=== PATIENT | male | born 1945 | race Caucasian/White ===

== ENCOUNTER 2017-03-30 21:08 | Inpatient (IN) | payer OTHER, MEDICARE, BC ==
[~2017-03-30] VITALS: Ht 188 cm; Wt 125.0 kg
[~2017-03-30 21:08] MED LIST: temazepam 15mg capsule PO PRN
[2017-03-30] MEDS ORDERED: pantoprazole 40MG/NS 100ML BAG 100 ML IV ONE (21:50)
[2017-03-30] MEDS ORDERED: pantoprazole 40 MG vial IV ONE (21:50)
[2017-03-30] MEDS ORDERED: tranexamic acid inj. 1,000 MG in normal saline 100ml IV soln 90 ML IV STA (21:51)
[2017-03-30 21:54] LABS: BASOPHILS % (AUTO) 0.4 % (0-1); EOSINOPHILS # (AUTO) 0.2 X10'3 (0-0.9); EOSINOPHILS % (AUTO) 2.3 % (0-6); HEMATOCRIT 30.8 % (42.0-52.0); HEMOGLOBIN 10.5 g/dl (14.0-17.9); LYMPHOCYTES # (AUTO) 1.9 X10'3 (1.1-4.8); LYMPHOCYTES % (AUTO) 18.4 % (21-51); MEAN CORPUSCULAR HEMOGLOBIN 31.2 PG (27.0-31.0); MEAN PLATELET VOLUME 7.4 FL (7.4-10.4); MONOCYTES # (AUTO) 0.5 X10'3 (0-0.9); MONOCYTES % (AUTO) 4.5 % (2-12); NEUTROPHILS # (AUTO) 7.7 X10'3 (1.8-7.7); NEUTROPHILS % (AUTO) 74.4 % (42-75); PLATELET COUNT 253 X10'3 (140-440); RED BLOOD COUNT 3.35 X10'6 (4.70-6.10); WHITE BLOOD COUNT 10.4 X10'3 (4.5-11.0)
[2017-03-30 22:04] LABS: INR 1.1 INR; PARTIAL THROMBOPLASTIN TIME 31 SECONDS (22-32)
[2017-03-30 22:11] LABS: ALANINE AMINOTRANSFERASE 20 U/L (12-78); ALBUMIN 3.3 G/DL (3.4-5.0); ALBUMIN/GLOBULIN RATIO 0.9 (1.1-1.5); ALKALINE PHOSPHATASE 75 IU/L (46-116); ANION GAP 11 (8-16); ASPARTATE AMINO TRANSFERASE 11 U/L (10-37); BILIRUBIN,TOTAL 0.5 MG/DL (0.1-1.0); BLOOD UREA NITROGEN 20 MG/DL (7-18); BUN/CREATININE RATIO 11.6 (5.4-32.0); CALCIUM 8.9 MG/DL (8.5-10.1); CHLORIDE 104 MMOL/L (99-107); CREATININE 1.73 MG/DL (0.60-1.10); GLUCOSE 297 MG/DL (70-104); POTASSIUM 4.4 MMOL/L (3.5-5.1); SODIUM 139 MMOL/L (135-145); TOTAL CARBON DIOXIDE 24.3 MMOL/L (24-32); TOTAL PROTEIN 6.8 G/DL (6.4-8.2); eGFR 39 ML/MIN
[2017-03-30] MEDS ORDERED: normal saline 1000ML IV soln IVB ONE (22:15)
[2017-03-30] MEDS ORDERED: [UNRECOGNIZED DRUG - OTHER] IV ONE (23:01)
[2017-03-30] MEDS ORDERED: PANTOPRAZOLE IV ONE (23:01)
[2017-03-30] MEDS ORDERED: tranexamic acid 100mg/ml inj. ONE (23:02)
[2017-03-30] MEDS ORDERED: mag hydrox/Alum hydrox/simeth 30ml oral suspension PO PRN (23:20)
[2017-03-30] MEDS ORDERED: HYDROcodone/acetaminophen 5mg/325mg tablet PO PRN (23:20)
[2017-03-30] MEDS ORDERED: magnesium hydroxide 30ml (MOM) UD suspension PO PRN (23:20)
[2017-03-30] MEDS ORDERED: HYDROmorphone 1 mg/ml syringe IV PRN ×2 (23:20)
[2017-03-30] MEDS ORDERED: acetaminophen 650mg rectal suppository RC PRN (23:20)
[2017-03-30] MEDS ORDERED: diphenhydrAMINE 50 mg/ml inj IV PRN (23:20)
[2017-03-30] MEDS ORDERED: ondansetron/PF 4mg/2ml inj IV PRN (23:20)
[2017-03-30] MEDS ORDERED: diphenhydrAMINE 25mg capsule PO PRN (23:20)
[2017-03-30] MEDS ORDERED: acetaminophen 325mg tablet PO PRN ×2 (23:20)
[2017-03-30] MEDS ORDERED: HYDROcodone/acetaminophen 10/325mg tab PO PRN (23:20)
[2017-03-30] MEDS ORDERED: bisacodyl 10mg suppository rectal RC PRN (23:20)
[2017-03-30] MEDS ORDERED: metoclopramide 5 mg/ml inj IV PRN (23:20)
[2017-03-30] MEDS ORDERED: TRAM50TA2 PO (23:37)
[2017-03-30] MEDS ORDERED: PIOG30TA27 PO (23:37)
[2017-03-30] MEDS ORDERED: MULT-269 PO (23:49)
[2017-03-30] MEDS ORDERED: ASPI-1265 PO (23:49)
[2017-03-30] MEDS ORDERED: CARV-50 PO (23:49)
[2017-03-30] MEDS ORDERED: METF500T4 PO (23:49)
[2017-03-30] MEDS ORDERED: HYDR-3964 PO (23:49)
[2017-03-30] MEDS ORDERED: LOSA100T28 PO (23:49)
[2017-03-30] MEDS ORDERED: GLIM4TAB79 PO (23:49)
[2017-03-30] MEDS ORDERED: CHOL400T14 PO (23:49)
[2017-03-30] MEDS ORDERED: HYDR12.55 PO (23:49)
[2017-03-30] MEDS ORDERED: ATOR10TA70 PO (23:49)
[2017-03-30 23:53] LABS: LIPASE 90 U/L (73-393); MAGNESIUM 1.3 MG/DL (1.5-2.4)
[2017-03-31] VITALS (14 sets, daily range): BP systolic 95–153; BP diastolic 42–68
[2017-03-31] MEDS: normal saline 1000ml 1,000 ML IV SCH ×3 (00:51→19:19)
[2017-03-31] MEDS ORDERED: MESSAGE TO PHARMACY PO ONE (01:45)
[2017-03-31] MEDS ORDERED: glucagon, human recombinant 1mg kit SUBCUT PRN (01:45)
[2017-03-31] MEDS ORDERED: dextrose 50%-water 50ml dispensing syringe IV PRN ×2 (01:45)
[2017-03-31] MEDS ORDERED: dextrose ORAL solution 15 GM/59 ML bottle PO PRN ×2 (01:45)
[2017-03-31] MEDS ORDERED: potassium Cl 40MEQ/NS 500ml 500 ML IV PRN ×2 (01:50)
[2017-03-31] MEDS ORDERED: magnesium 2GM in 50ml NS 50 ML IV PRN (01:50)
[2017-03-31] MEDS ORDERED: magnesium 4gm in 100ml NS 100 ML IV PRN (01:50)
[2017-03-31] MEDS ORDERED: potassium Cl 20 mEq SR tablet PO PRN ×2 (01:50)
[2017-03-31 04:11] LABS: BASOPHILS % (AUTO) 0.5 % (0-1); EOSINOPHILS # (AUTO) 0.2 X10'3 (0-0.9); HEMATOCRIT 23.6 % (42.0-52.0); HEMOGLOBIN 8.1 g/dl (14.0-17.9); LYMPHOCYTES # (AUTO) 2.3 X10'3 (1.1-4.8); MEAN CORPUSCULAR HEMOGLOBIN 31.7 PG (27.0-31.0); MEAN CORPUSCULAR HGB CONC 34.3 % (33.0-36.5); MEAN CORPUSCULAR VOLUME 92.5 FL (78-98); MEAN PLATELET VOLUME 7.5 FL (7.4-10.4); MONOCYTES # (AUTO) 0.6 X10'3 (0-0.9); MONOCYTES % (AUTO) 6.2 % (2-12); NEUTROPHILS # (AUTO) 6.2 X10'3 (1.8-7.7); NEUTROPHILS % (AUTO) 66.3 % (42-75); PLATELET COUNT 206 X10'3 (140-440); RED BLOOD COUNT 2.55 X10'6 (4.70-6.10); RED CELL DISTRIBUTION WIDTH 14.1 % (11.5-14.5); WHITE BLOOD COUNT 9.4 X10'3 (4.5-11.0)
[2017-03-31 04:27] LABS: ALANINE AMINOTRANSFERASE 18 U/L (12-78); ALBUMIN 2.8 G/DL (3.4-5.0); ALKALINE PHOSPHATASE 57 IU/L (46-116); ANION GAP 6 (8-16); ASPARTATE AMINO TRANSFERASE 9 U/L (10-37); BILIRUBIN,TOTAL 0.4 MG/DL (0.1-1.0); BLOOD UREA NITROGEN 23 MG/DL (7-18); BUN/CREATININE RATIO 15.1 (5.4-32.0); CALCIUM 8.5 MG/DL (8.5-10.1); CHLORIDE 110 MMOL/L (99-107); CREATININE 1.52 MG/DL (0.60-1.10); GLUCOSE 197 MG/DL (70-104); POTASSIUM 4.7 MMOL/L (3.5-5.1); SODIUM 141 MMOL/L (135-145); TOTAL PROTEIN 5.7 G/DL (6.4-8.2); eGFR 45 ML/MIN
[2017-03-31] MEDS: pantoprazole 40MG/NS 100ML BAG 100 ML IV SCH ×4 (04:36→23:15)
[2017-03-31] MEDS: magnesium Cl slow-release 64mg tablet PO PRN (04:50)
[2017-03-31] MEDS: nicotine 21mg patch - 24 hr TD SCH (08:00)
[2017-03-31] MEDS: docusate sod 100mg capsule PO SCH ×2 (08:41→20:00)
[2017-03-31] MEDS ORDERED: traMADol 50MG tablet PO PRN (10:30)
[2017-03-31] MEDS ORDERED: HYDROchlorothiazide 12.5mg capsule PO SCH (10:30)
[2017-03-31] MEDS: HYDROchlorothiazide 12.5mg capsule PO SCH ×2 (11:00→11:13)
[2017-03-31] MEDS: carVEDilol 12.5mg tablet PO SCH ×2 (11:13→21:19)
[2017-03-31] MEDS ORDERED: MIDAZolam 1mg/ml 10ml vial ONE (15:07)
[2017-03-31] MEDS ORDERED: fentaNYL/PF 50MCG/1 ML 2ML syringe ONE (15:07)
[2017-03-31] MEDS ORDERED: LIDOcaine Viscous 15ml cup ONE (15:07)
[2017-03-31] MEDS ORDERED: PEG 3350/Na sulf,bicarb,Cl/KCl oral sol 4 liter bottle PO ONE (17:05)
[2017-03-31] MEDS: insulin Lispro (HumaLOG) vial - multi-dose SQ SCH (18:45)
[2017-03-31 19:43] LABS: HEMOGLOBIN 7.3 g/dl (14.0-17.9); MEAN CORPUSCULAR HEMOGLOBIN 31.6 PG (27.0-31.0); MEAN CORPUSCULAR HGB CONC 34.3 % (33.0-36.5); MEAN CORPUSCULAR VOLUME 92.2 FL (78-98); MEAN PLATELET VOLUME 7.4 FL (7.4-10.4); PLATELET COUNT 197 X10'3 (140-440); RED CELL DISTRIBUTION WIDTH 14.3 % (11.5-14.5); WHITE BLOOD COUNT 7.7 X10'3 (4.5-11.0)
[2017-03-31 19:57] LABS: HEMATOCRIT 21.2 % (42.0-52.0)
[2017-03-31] MEDS: atorvastatin 10mg tablet PO SCH (21:19)
[2017-03-31] MEDS: Insulin Detemir pen SQ SCH (21:27)
[2017-04-01] VITALS (11 sets, daily range): BP systolic 99–158; BP diastolic 55–71
[2017-04-01] MEDS: pantoprazole 40MG/NS 100ML BAG 100 ML IV SCH ×4 (04:53→20:50)
[2017-04-01] MEDS: normal saline 1000ml 1,000 ML IV SCH ×2 (04:53→12:40)
[2017-04-01 06:09] LABS: BASOPHILS % (AUTO) 0.4 % (0-1); EOSINOPHILS # (AUTO) 0.3 X10'3 (0-0.9); EOSINOPHILS % (AUTO) 3.8 % (0-6); HEMATOCRIT 22.1 % (42.0-52.0); HEMOGLOBIN 7.7 g/dl (14.0-17.9); LYMPHOCYTES # (AUTO) 2.3 X10'3 (1.1-4.8); LYMPHOCYTES % (AUTO) 31.3 % (21-51); MEAN CORPUSCULAR HEMOGLOBIN 31.4 PG (27.0-31.0); MEAN CORPUSCULAR HGB CONC 34.7 % (33.0-36.5); MEAN CORPUSCULAR VOLUME 90.6 FL (78-98); MEAN PLATELET VOLUME 7.8 FL (7.4-10.4); MONOCYTES # (AUTO) 0.5 X10'3 (0-0.9); MONOCYTES % (AUTO) 6.6 % (2-12); NEUTROPHILS # (AUTO) 4.2 X10'3 (1.8-7.7); NEUTROPHILS % (AUTO) 57.9 % (42-75); PLATELET COUNT 172 X10'3 (140-440); RED BLOOD COUNT 2.44 X10'6 (4.70-6.10); RED CELL DISTRIBUTION WIDTH 14.3 % (11.5-14.5); WHITE BLOOD COUNT 7.3 X10'3 (4.5-11.0)
[2017-04-01 06:41] LABS: ALANINE AMINOTRANSFERASE 10 U/L (12-78); ALBUMIN 2.7 G/DL (3.4-5.0); ALKALINE PHOSPHATASE 51 IU/L (46-116); ANION GAP 9 (8-16); ASPARTATE AMINO TRANSFERASE 5 U/L (10-37); BILIRUBIN,TOTAL 0.3 MG/DL (0.1-1.0); BLOOD UREA NITROGEN 17 MG/DL (7-18); BUN/CREATININE RATIO 14.3 (5.4-32.0); CALCIUM 8.3 MG/DL (8.5-10.1); CHLORIDE 112 MMOL/L (99-107); CREATININE 1.19 MG/DL (0.60-1.10); GLUCOSE 90 MG/DL (70-104); MAGNESIUM 1.3 MG/DL (1.5-2.4); SODIUM 145 MMOL/L (135-145); TOTAL CARBON DIOXIDE 23.7 MMOL/L (24-32); TOTAL PROTEIN 5.4 G/DL (6.4-8.2); eGFR 60 ML/MIN
[2017-04-01] MEDS: HYDROchlorothiazide 12.5mg capsule PO SCH ×2 (08:00→09:23)
[2017-04-01] MEDS: nicotine 21mg patch - 24 hr TD SCH (08:00)
[2017-04-01] MEDS: docusate sod 100mg capsule PO SCH ×2 (08:00→20:00)
[2017-04-01] MEDS: carVEDilol 12.5mg tablet PO SCH ×2 (09:22→20:40)
[2017-04-01] MEDS ORDERED: normal saline 1000ml 1,000 ML IV SCH (11:16)
[2017-04-01] MEDS ORDERED: MIDAZolam 5mg/5ml vial IV PRN (11:20)
[2017-04-01] MEDS ORDERED: simethicone 40mg/0.6ml oral drops 30ml MC ONE (11:20)
[2017-04-01] MEDS ORDERED: fentaNYL/PF 50MCG/1 ML 2ML syringe IV PRN (11:20)
[2017-04-01] MEDS ORDERED: fentaNYL/PF 50MCG/1 ML 2ML syringe ONE (14:26)
[2017-04-01] MEDS ORDERED: MIDAZolam 1mg/ml 10ml vial ONE (14:26)
[2017-04-01 19:21] LABS: HEMATOCRIT 24.6 % (42.0-52.0); HEMOGLOBIN 8.4 g/dl (14.0-17.9); MEAN CORPUSCULAR HEMOGLOBIN 31.3 PG (27.0-31.0); MEAN CORPUSCULAR HGB CONC 34.2 % (33.0-36.5); MEAN CORPUSCULAR VOLUME 91.7 FL (78-98); MEAN PLATELET VOLUME 7.8 FL (7.4-10.4); PLATELET COUNT 186 X10'3 (140-440); RED BLOOD COUNT 2.68 X10'6 (4.70-6.10); RED CELL DISTRIBUTION WIDTH 14.5 % (11.5-14.5); WHITE BLOOD COUNT 8.8 X10'3 (4.5-11.0)
[2017-04-01] MEDS: atorvastatin 10mg tablet PO SCH (20:40)
[2017-04-01] MEDS: insulin Lispro (HumaLOG) vial - multi-dose SQ SCH (20:44)
[2017-04-01] MEDS: Insulin Detemir pen SQ SCH (22:25)
[2017-04-02] VITALS (14 sets, daily range): BP systolic 98–163; BP diastolic 44–93
[2017-04-02] MEDS: pantoprazole 40MG/NS 100ML BAG 100 ML IV SCH ×5 (02:08→20:55)
[2017-04-02 05:46] LABS: BASOPHILS % (AUTO) 0.5 % (0-1); EOSINOPHILS # (AUTO) 0.3 X10'3 (0-0.9); EOSINOPHILS % (AUTO) 3.7 % (0-6); HEMOGLOBIN 7.4 g/dl (14.0-17.9); LYMPHOCYTES # (AUTO) 2.4 X10'3 (1.1-4.8); MEAN CORPUSCULAR HEMOGLOBIN 30.9 PG (27.0-31.0); MEAN CORPUSCULAR HGB CONC 33.7 % (33.0-36.5); MEAN CORPUSCULAR VOLUME 91.7 FL (78-98); MEAN PLATELET VOLUME 7.8 FL (7.4-10.4); MONOCYTES # (AUTO) 0.6 X10'3 (0-0.9); NEUTROPHILS # (AUTO) 4.7 X10'3 (1.8-7.7); NEUTROPHILS % (AUTO) 57.8 % (42-75); PLATELET COUNT 179 X10'3 (140-440); RED BLOOD COUNT 2.38 X10'6 (4.70-6.10); RED CELL DISTRIBUTION WIDTH 14.4 % (11.5-14.5); WHITE BLOOD COUNT 8.1 X10'3 (4.5-11.0)
[2017-04-02 06:21] LABS: HEMATOCRIT 21.8 % (42.0-52.0)
[2017-04-02 06:27] LABS: ALANINE AMINOTRANSFERASE 18 U/L (12-78); ALBUMIN 2.7 G/DL (3.4-5.0); ALKALINE PHOSPHATASE 53 IU/L (46-116); ANION GAP 8 (8-16); ASPARTATE AMINO TRANSFERASE 13 U/L (10-37); BILIRUBIN,TOTAL 0.3 MG/DL (0.1-1.0); BLOOD UREA NITROGEN 13 MG/DL (7-18); BUN/CREATININE RATIO 10.5 (5.4-32.0); CALCIUM 8.3 MG/DL (8.5-10.1); CHLORIDE 112 MMOL/L (99-107); CREATININE 1.24 MG/DL (0.60-1.10); GLUCOSE 108 MG/DL (70-104); MAGNESIUM 1.4 MG/DL (1.5-2.4); POTASSIUM 3.8 MMOL/L (3.5-5.1); SODIUM 144 MMOL/L (135-145); TOTAL CARBON DIOXIDE 24.2 MMOL/L (24-32); TOTAL PROTEIN 5.4 G/DL (6.4-8.2); eGFR 57 ML/MIN
[2017-04-02] MEDS: normal saline 1000ml 1,000 ML IV SCH ×3 (06:29→17:53)
[2017-04-02] MEDS: HYDROchlorothiazide 12.5mg capsule PO SCH ×2 (06:51→07:28)
[2017-04-02] MEDS: docusate sod 100mg capsule PO SCH ×2 (07:28→20:54)
[2017-04-02] MEDS: carVEDilol 12.5mg tablet PO SCH ×2 (07:28→20:54)
[2017-04-02] MEDS: nicotine 21mg patch - 24 hr TD SCH (07:29)
[2017-04-02] MEDS: magnesium Cl slow-release 64mg tablet PO PRN ×2 (12:40→21:06)
[2017-04-02] MEDS: insulin Lispro (HumaLOG) vial - multi-dose SQ SCH (13:17)
[2017-04-02 18:11] LABS: HEMATOCRIT 29.1 % (42.0-52.0); MEAN CORPUSCULAR HGB CONC 34.3 % (33.0-36.5); MEAN CORPUSCULAR VOLUME 90.4 FL (78-98); MEAN PLATELET VOLUME 7.3 FL (7.4-10.4); PLATELET COUNT 177 X10'3 (140-440); RED BLOOD COUNT 3.22 X10'6 (4.70-6.10); RED CELL DISTRIBUTION WIDTH 14.7 % (11.5-14.5); WHITE BLOOD COUNT 6.8 X10'3 (4.5-11.0)
[2017-04-02] MEDS: atorvastatin 10mg tablet PO SCH (20:55)
[2017-04-02] MEDS: Insulin Detemir pen SQ SCH (20:58)
[2017-04-03] MEDS: pantoprazole 40MG/NS 100ML BAG 100 ML IV SCH ×2 (01:17→07:20)
[2017-04-03 02:00] VITALS: BP 164/74
[2017-04-03 05:37] LABS: BASOPHILS % (AUTO) 0.4 % (0-1); EOSINOPHILS # (AUTO) 0.2 X10'3 (0-0.9); EOSINOPHILS % (AUTO) 2.8 % (0-6); HEMATOCRIT 27.1 % (42.0-52.0); HEMOGLOBIN 9.3 g/dl (14.0-17.9); LYMPHOCYTES # (AUTO) 2.2 X10'3 (1.1-4.8); LYMPHOCYTES % (AUTO) 31.7 % (21-51); MEAN CORPUSCULAR HGB CONC 34.4 % (33.0-36.5); MEAN CORPUSCULAR VOLUME 90.1 FL (78-98); MEAN PLATELET VOLUME 7.7 FL (7.4-10.4); MONOCYTES # (AUTO) 0.6 X10'3 (0-0.9); MONOCYTES % (AUTO) 8.4 % (2-12); NEUTROPHILS # (AUTO) 3.9 X10'3 (1.8-7.7); NEUTROPHILS % (AUTO) 56.7 % (42-75); PLATELET COUNT 172 X10'3 (140-440); RED BLOOD COUNT 3.01 X10'6 (4.70-6.10); RED CELL DISTRIBUTION WIDTH 14.6 % (11.5-14.5)
[2017-04-03 05:43] LABS: WHITE BLOOD COUNT 6.5 X10'3 (4.5-11.0)
[2017-04-03 06:05] LABS: ALANINE AMINOTRANSFERASE 14 U/L (12-78); ALBUMIN 2.7 G/DL (3.4-5.0); ALBUMIN/GLOBULIN RATIO 0.9 (1.1-1.5); ALKALINE PHOSPHATASE 51 IU/L (46-116); ANION GAP 8 (8-16); ASPARTATE AMINO TRANSFERASE 15 U/L (10-37); BILIRUBIN,TOTAL 0.9 MG/DL (0.1-1.0); BLOOD UREA NITROGEN 13 MG/DL (7-18); BUN/CREATININE RATIO 10.8 (5.4-32.0); CALCIUM 8.5 MG/DL (8.5-10.1); CHLORIDE 109 MMOL/L (99-107); GLUCOSE 184 MG/DL (70-104); MAGNESIUM 1.3 MG/DL (1.5-2.4); POTASSIUM 3.4 MMOL/L (3.5-5.1); SODIUM 142 MMOL/L (135-145); TOTAL CARBON DIOXIDE 25.1 MMOL/L (24-32); TOTAL PROTEIN 5.7 G/DL (6.4-8.2); eGFR 60 ML/MIN
[2017-04-03] MEDS: HYDROchlorothiazide 12.5mg capsule PO SCH ×2 (07:19→07:24)
[2017-04-03] MEDS: docusate sod 100mg capsule PO SCH (07:19)
[2017-04-03] MEDS: carVEDilol 12.5mg tablet PO SCH (07:19)
[2017-04-03] MEDS: nicotine 21mg patch - 24 hr TD SCH (07:20)
[2017-04-03] MEDS: normal saline 1000ml 1,000 ML IV SCH (07:24)
[2017-04-03 07:58] VITALS: BP 173/81
[2017-04-03] MEDS ORDERED: K and/or MAG REPLACEMENT MC SCH (08:00)
[2017-04-03] MEDS ORDERED: magnesium 4gm in 100ml NS 100 ML IV PRN (08:30)
[2017-04-03] MEDS ORDERED: magnesium Cl slow-release 64mg tablet PO PRN (08:30)
[2017-04-03] MEDS ORDERED: magnesium 2GM in 50ml NS 50 ML IV PRN (08:30)
[2017-04-03] MEDS ORDERED: potassium Cl 20 mEq SR tablet PO PRN ×2 (08:30)
[2017-04-03] MEDS ORDERED: potassium Cl 40MEQ/NS 500ml 500 ML IV PRN ×2 (08:30)
[2017-04-03] MEDS: insulin Lispro (HumaLOG) vial - multi-dose SQ SCH ×2 (08:40→13:56)
[2017-04-03] MEDS ORDERED: magnesium hydroxide 30ml (MOM) UD suspension PO ONE (10:15)
[2017-04-03 12:04] VITALS: BP 151/77
[2017-04-03] MEDS ORDERED: PROCHC RC (15:38)
[2017-04-03] MEDS ORDERED: NICO-687 TD (15:38)
[2017-04-03 16:51] VITALS: BP 153/85
[2017-04-04] MEDS ORDERED: pantoprazole 40 MG vial IV SCH (08:00)
== END 2017-04-03 17:13 | disposition home or self-care (01) | DRG 378 ==
LOC: ER 21:09 → ED HOLD 23:19 → PCU 3S 03-31 00:37
PROVIDERS: ADMIT Family Medicine; ATTEND Family Medicine
PROC: 30233N1 Transfusion of Nonautologous Red Blood Cells into Peripheral Vein, Percutaneous Approach (ICD-10-PCS; principal; 2017-03-31)
PROC: 0DB68ZX Excision of Stomach, Via Natural or Artificial Opening Endoscopic, Diagnostic (ICD-10-PCS; 2017-03-31)
PROC: 0DBH8ZX Excision of Cecum, Via Natural or Artificial Opening Endoscopic, Diagnostic (ICD-10-PCS; 2017-04-01)
PROC: 0DBN8ZX Excision of Sigmoid Colon, Via Natural or Artificial Opening Endoscopic, Diagnostic (ICD-10-PCS; 2017-04-01)
DX: K92.1 Melena (principal); N17.9 Acute kidney failure, unspecified; E11.22 Type 2 diabetes mellitus with diabetic chronic kidney disease; E11.65 Type 2 diabetes mellitus with hyperglycemia; E83.42 Hypomagnesemia; D62 Acute posthemorrhagic anemia; E78.00 Pure hypercholesterolemia, unspecified; D12.5 Benign neoplasm of sigmoid colon; K29.70 Gastritis, unspecified, without bleeding; K29.80 Duodenitis without bleeding; D12.0 Benign neoplasm of cecum; K57.30 Diverticulosis of large intestine without perforation or abscess without bleeding; E78.5 Hyperlipidemia, unspecified; I12.9 Hypertensive chronic kidney disease with stage 1 through stage 4 chronic kidney disease, or unspecified chronic kidney disease; J44.9 Chronic obstructive pulmonary disease, unspecified; K64.8 Other hemorrhoids; N18.9 Chronic kidney disease, unspecified; Z87.442 Personal history of urinary calculi; Z79.899 Other long term (current) drug therapy; Z79.82 Long term (current) use of aspirin
CPT/HCPCS: 36415; 43239; 45385; 71045; 74176; 80053; 82948; 83036; 83690; 83735; 83880; 84443; 84484; 85025; 85027; 85610; 85730; 86885; 86900; 86901; 86920; 87070; 88305; 88313; 88342; 93005; 96365; 96375; 99285; A4620; A6212; A6213; C9113; G0500; J2250; J3010; J3475; J7030; P9016